=== PATIENT | male | born 1995 | race Caucasian/White ===

== ENCOUNTER 2020-09-20 03:54 | Emergency (ER) | payer SELFPAY ==
[~2020-09-20] VITALS: Ht 172.7 cm; Wt 66.0 kg
[2020-09-20 05:10] VITALS: BP 122/80
[2020-09-20] MEDS ORDERED: IBUP-2028 PO (06:32)
== END 2020-09-20 07:15 | disposition home or self-care (01) ==
LOC: ER 03:54
DX: S92.425A Nondisplaced fracture of distal phalanx of left great toe, initial encounter for closed fracture (principal); W22.8XXA Striking against or struck by other objects, initial encounter; Y93.89 Activity, other specified; Y92.89 Other specified places as the place of occurrence of the external cause; Y99.8 Other external cause status
CPT/HCPCS: 73630; 99283; Z7610